=== PATIENT | female | born 1945 | race Two or more races ===

== ENCOUNTER → 2025-08-14 | Outpatient (CLI) | payer MEDICARE | END | disposition home or self-care (01) | LOC: LAB 09:57 → EDSTATUS 08-24 07:00 | PROVIDERS: ATTEND Orthopaedic Surgery Adult Reconstructive Orthopaedic Surgery | DX: M16.11 Unilateral primary osteoarthritis, right hip (principal) | CPT/HCPCS: 86850; 86900; 86901 ==

== ENCOUNTER 2025-08-24 06:09 | Inpatient (IN) | payer MEDICARE ==
[2025-08-20 11:17] LABS: Hematocrit 35.1 % (36.0-46.0); Hemoglobin 11.9 g/dL (12.2-16.2); Mean Corpuscular Hemoglobin 33.1 pg (28.0-32.0); Mean Corpuscular Volume 97.4 fL (80.0-100.0); Nucleated Red Blood Cells % 0.0 %; Urine Protein, UAD Negative (Negative)
[2025-08-20 11:28] LABS: INR 0.98 (0.9-1.15); Partial Thromboplastin Time 24.4 SEC (24.5-34.5); Prothrombin Time 10.4 sec (9.3-11.8)
[2025-08-20 11:44] LABS: Alanine Aminotransferase 16 U/L (7-40); Albumin 4.3 g/dL (3.2-4.8); Alkaline Phosphatase 79 U/L (46-116); Anion Gap 11 (5-15); BUN/Creatinine Ratio 17.0 (10.0-20.0); Blood Urea Nitrogen 15 mg/dL (9-23); Calcium 9.4 mg/dL (8.7-10.4); Carbon Dioxide 27 mmol/L (20-31); Potassium 4.7 mmol/L (3.5-5.1); Total Protein 7.1 g/dL (5.7-8.2)
[2025-08-20 11:45] LABS: Bilirubin, Total 0.6 mg/dL (0.2-1.0)
[2025-08-20 11:49] LABS: Chloride 109 mmol/L (98-107); Sodium 147 mmol/L (136-145)
[2025-08-20 12:09] LABS: Glucose 102 mg/dL (74-106)
[~2025-08-24] VITALS: Ht 162.6 cm; Wt 60.0 kg
[2025-08-24] VITALS (15 sets, daily range): BP systolic 111–166; BP diastolic 29–78; PULSE 54–76; RESP 12–18; TEMP 97.4–97.8; O2SAT 93–100
[~2025-08-24 06:09] MED LIST: ASCO500T11 PO; ATOR10TA52 PO; CALC-337 OR; CARV3.1240 PO; CYAN1TAB14 PO; DULO20CA PO; IBU600T PO; LEVO-849 PO; MECL12.586 PO; MULT-1200 PO; MULT-1228 PO; PREG100C PO; TURM500C3 OR
[2025-08-24] MEDS: PREGABALIN CAPSULE 75 MG CAP PO ONE (07:00)
[2025-08-24] MEDS: ACETAMINOPHEN IV 1000 MG/100ML (10MG/ML) IV ONE (07:00)
[2025-08-24] MEDS: CELECOXIB 100 MG CAP PO ONE (07:00)
[2025-08-24] MEDS: TRANEXAMIC ACID 20 ML ONE (07:20)
[2025-08-24] MEDS: ACETAMINOPHEN IV 100 ML IV ONE (07:20)
[2025-08-24] MEDS: ceFAZolin 2 GM/D5W50ml 50 ML IV ONE (07:30)
[2025-08-24] MEDS: CEFEPIME 1GM/50ML 50 ML IV ONE (07:50)
[2025-08-24] MEDS ORDERED: NITROGLYCERIN 0.4 MG SL TAB SL PRN (09:00)
[2025-08-24] MEDS: BUPIVACAINE 0.25% INJ 50ML VIAL ONE (09:00)
[2025-08-24] MEDS: KETOROLAC TROMETH 30 MG/ML 1ML VIAL ONE (09:00)
[2025-08-24] MEDS ORDERED: ONDANSETRON HCL 4 MG/2 ML VIAL IV PRN ×2 (09:00→10:00)
[2025-08-24] MEDS: VANCOMYCIN HCL 1000 MG VL ONE (09:00)
[2025-08-24] MEDS ORDERED: IBUPROFEN 600 MG TAB PO PRN (09:00)
[2025-08-24] MEDS ORDERED: HYDROmorphone HCL 2 MG/ML VL/or syr IV PRN ×2 (09:00→10:00)
[2025-08-24] MEDS ORDERED: MECLIZINE HCL 25 MG TAB PO SCH (09:30)
[2025-08-24] MEDS ORDERED: MORPHINE SULFATE 4 MG/ML SYR/VIAL IV PRN (09:30)
[2025-08-24] MEDS: CARVEDILOL 3.125 MG TAB PO SCH (10:00)
[2025-08-24] MEDS: PREGABALIN 25 MG CAP PO SCH (10:00)
[2025-08-24] MEDS ORDERED: NALOXONE HCL 0.4 MG/ML VIAL IV PRN (10:00)
[2025-08-24] MEDS ORDERED: diphenhydrAMINE HCL 50 MG/1 ML VL IV PRN (10:00)
[2025-08-24] MEDS: LEVOTHYROXINE SODIUM 100 MCG TAB PO SCH (10:00)
[2025-08-24] MEDS ORDERED: ACETAMINOPHEN IV 1000 MG/100ML (10MG/ML) IV ONE (10:00)
[2025-08-24] MEDS: Duloxetine Hcl (Cymbalta) 20MG CAPSULE PO SCH (10:00)
[2025-08-24] MEDS: CALCIUM CITRATE VITAMIN D PO SCH (10:00)
--- NOTE | 2025-08-24 10:20 | DVH ---
EXAM: XY PELVIS AP CLINICAL INDICATION: sp Right PILAR TECHNIQUE: XY PELVIS AP Comparison: XR PELVIS 1-2 VIEW on DOS: 07/16/25, CR HIP BILATERAL W/ PELVIS - 3 VW on DOS: 12/26/23 FINDINGS/IMPRESSION: Expected postsurgical changes status post right total hip arthroplasty. Right total hip arthroplasty.
[2025-08-24] MEDS: LACTATED RINGER'S 1,000 ML IV SCH (11:02)
[2025-08-24] MEDS: DOCUSATE SOD 100 MG CAP PO SCH (11:39)
[2025-08-24] MEDS: ASCORBIC ACID 500 MG TAB PO SCH (11:40)
[2025-08-24] MEDS: MULTIPLE VITAMINS W/ MINERALS TAB PO SCH (11:41)
[2025-08-24] MEDS: SODIUM CHLOR 0.9% PF (SALINE LOCK) 10ML VIAL/SYR IV SCH (14:00)
--- NOTE | 2025-08-24 18:17 | DVHOP2 ---
Operative Report - 2 Report Details Date: 08/24/25 Preop Diagnosis: Right hip avascular necrosis Postop Diagnosis: as above Surgeon: Enio Baron MD Tire Sorter: Maurisio VALLE Anesthesiologist: Elvin MARTINEZ Anesthesia: Regional Implant: Ugarte and nephew cemented 0 std offset r3 size 48 cup 28+0 dual mobility Consent: The patient was informed of the risks and benefits of the procedure. These include but are not limited to complications of anesthesia, postoperative infection, incomplete relief of symptoms, recurrence of symptoms, damage to b lood vessels, nerves and tendons, deep venous thrombosis, pulmonary embolism and possible need for repeat surgery in the future. Estimated Blood Loss: 300 cc Name of Procedure Performed 1. Right total hip arthroplasty with computer navigation Procedure Details Procedure Details: INDICATION: This patient has failed non-operative treatments for hip arthritis and is now indicated for a total hip replacement. Preoperatively in the waiting area as well as in the office, I had a long discussion with the patient regarding the plan, the expected outcome, the risks, benefits, and alternatives of surgery. The risks include, but are not limited to, infection (which may require future surgery and removal of implants) , bleeding (which may require a transfusion), damage to nerves, arteries, veins, tendons, muscles and other adjacent structures. Also discussed the possibilities of dislocation, leg-length discrepancy, intraoperative fractures, implant loosening, heterotopic bone formation, and revision for variety of reasons, and medical complications etc. This was discussed at length and consent has been obtained. DESCRIPTION OF PROCEDURE: In the preoperative holding area, the consent was reviewed and the appropriate extremity was verified by the patient and marked with my initials. The patient was then transferred to the operating theatre. Appropriate anesthetia was induced. All bony prominences were well padded. A time out was performed verifying the side and site of surgery according to standard protocol. Preoperative antibiotics were given. Tranexamic acid {WAS/WAS NOT:[id number]} given. The patient was then placed in the lateral decubitus position and fixed with rigid pelvic fixation. All bony prominences were well padded and an axillary roll was placed. The affected hip area was then prepped and draped in the usual sterile fashion. Using an 11-blade, three stab incisions were made over the iliac crest. Two threaded guide pins were inserted into the crest confirming to be in bone. The pelvic array was attached to the pins and tightened. We made a standard posterolateral incision sharply through the skin and carried our dissection down through subcutaneous tissue to the underlying fascia achieving hemostasis where necessary. We incised the fascia in line with our incision. We identified and protected the sciatic nerve. We took down the external rotators and hip capsule from their insertion into the greater trochanter, tagged them and retracted them posteriorly for further protection of the sciatic nerve. A check point was placed into the greater trochanter and the hip center and leg length length were registered. We then dislocated the femoral head and performed an osteotomy of the femoral neck in accordance with our pre-operative plan. The labrum was excised with a long-handle knife, and we exposed the acetabular rim and cotyloid fossa. We then reamed up to our final size in accordance with the preoperative plan. We copiously irrigated and then impacted the final cup into position. We confirmed the position with the robotic navigation guidance. We irrigated the cup and impacted the liner, checking to make sure it was well seated. Attention was then turned to the femur. We used a box osteotome followed by a canal finder to gain entry to the canal. Intramedullary contents were suctioned and care was taken to ensure they did not touch the tissues. We sequentially reamed until good cortical contact, then broached up to out final size. Patent noted to have a hairline fracture at her greater troch so we placed two cables around femur. We trialed with the appropriate femoral neck and head and reduced the hip. The hip was taken through a full range of motion. The hip soft tissues were examined in extension and external rotation, the anterior capsule and IT band were palpated, and combined anteversion was determined to be 40 degrees. The hip was stable at maximum flexion, at 90 degrees of flexion and 45 degrees of internal rotation and the position of sleep. Leg lengths were restored as shown using the computer navigation, and the trial LTC matched preoperative and intraoperative templating. The hip was then dislocated and trial components removed. We copiously irrigated the wound and cementedthe final femoral stem into position. The femoral head was impacted onto a clean and dry trunion and confirmed to be seated. The hip was reduced ensuring to tissues in the acetabular cup. We again brought it through a full functional range of motion and there was no evidence for dislocation, instability, or impingement. The checkpoint was removed. A dilute betadine solution (17.5mL in 500mL saline) was used to wash the joint and left to sit for 3 minutes. This was then irrigated out with copious amounts of pulse lavage. We sprinkled 1g vancomycin powder below the fascia and 1g above the fascia. We copiously irrigated the wound and soft tissues. The short external rotators and capsule were repaired to the greater trochanter through drill holes, and the quadratus was repaired. We palpated the sciatic nerve in continuity without tension. The fascia was closed with vicryl and a barbed suture. We closed over the fascia with vicryl suture and re-approximated the skin with lorena. A sterile dressing was placed. We returned the patient to the supine position. We verified all lower extremity compartments were soft andd compressible and that we had intact distal pulses and checked our leg length confucianist. We took an AP Pelvis in the operating room, which we reviewed prior to transfer. The patient was then transferred to the recovery room in stable condition. Condition Good Disposition Still a Patient ENIO BARON MD Aug 24, 2025 18:17
[2025-08-24] MEDS: ATORVASTATIN 20 MG TAB PO SCH (22:10)
[2025-08-25] VITALS (27 sets, daily range): BP systolic 92–116; BP diastolic 41–77; PULSE 70–90; RESP 15–18; TEMP 97.8–98.9; O2SAT 90–99
[2025-08-25 07:02] LABS: Hematocrit 27.6 % (36.0-46.0); Hemoglobin 9.5 g/dL (12.2-16.2)
[2025-08-25 07:18] LABS: Albumin 3.3 g/dL (3.2-4.8); Alkaline Phosphatase 78 U/L (46-116); Anion Gap 9 (5-15); BUN/Creatinine Ratio 22.1 (10.0-20.0); Blood Urea Nitrogen 19 mg/dL (9-23); Carbon Dioxide 26 mmol/L (20-31); Potassium 4.3 mmol/L (3.5-5.1); Sodium 142 mmol/L (136-145)
[2025-08-25 07:19] LABS: Bilirubin, Total 0.5 mg/dL (0.2-1.0)
[2025-08-25 07:23] LABS: Alanine Aminotransferase 137 U/L (7-40); Calcium 8.2 mg/dL (8.7-10.4); Chloride 107 mmol/L (98-107); Glucose 147 mg/dL (74-106)
[2025-08-25 07:24] LABS: Total Protein 5.4 g/dL (5.7-8.2)
--- NOTE | 2025-08-25 07:50 | DVHDS2 ---
Discharge Summary Date of Admission Aug 24, 2025 at 08:57 Date of Discharge: Aug 25, 2025 Wounds: If the wound is draining please change the gauze pad on the wound until it stops. If drainage persists past 10 days please notify our office. If there is a sticky gel dressing over your wound, you may leave this in place for as long as it is clean and dry. If it becomes loose or causes skin irritation, it is OK to remove it and place clean gauze over your wound. 1. You might notice some bruising around the surgical site, this is normal. 2. Check your temperature on a daily basis. Please note that a low-grade temp below 101 is not uncommon after surgery especially during the first 3 days. Notify the office if your temperature spikes above 101.5 after the 3rd post- operative date. 3. Many patients experience significant swelling in the thigh, this may extend below the knee and sometimes to the ankle. Swelling increases during the first week and subsides during the following week. 4. Provided you have been on a blood thinner since surgery and have been up and about at least three times per day, the risk of a blood clot is low and this swelling is an expected part of recovery. It will largely or completely resolve by your first post-operative visit. 5. [place], if present, will be removed at 2 weeks during initial post-op visit. Labs/Diagnostic Data: Laboratory Results Test 08/25/25 05:55 08/20/25 10:20 Hemoglobin 9.5 g/dL (12.2-16.2) Hematocrit 27.6 % (36.0-46.0) Sodium Level 142 mmol/L (136-145) Potassium Level 4.3 mmol/L (3.5-5.1) Chloride Level 107 mmol/L (98-107) Carbon Dioxide Level 26 mmol/L (20-31) Anion Gap 9 (5-15) Blood Urea Nitrogen 19 mg/dL (9-23) Creatinine 0.86 mg/dL (0.550-1.02) Glomerular Filtration Rate Calc 68 mL/min (>90) BUN/Creatinine Ratio 22.1 (10.0-20.0) Serum Glucose 147 mg/dL (74-106) Calcium Level 8.2 mg/dL (8.7-10.4) Total Bilirubin 0.5 mg/dL (0.2-1.0) Aspartate Amino Transferase (AST) 175 U/L (13-40) Alanine Aminotransferase (ALT) 137 U/L (7-40) Alkaline Phosphatase 78 U/L (46-116) Total Protein 5.4 g/dL (5.7-8.2) Albumin 3.3 g/dL (3.2-4.8) White Blood Count 4.3 10^3/uL (4.4-10.8) Red Blood Count 3.60 10^6/uL (4.0-5.20) Mean Corpuscular Volume 97.4 fL (80.0-100.0) Mean Corpuscular Hemoglobin 33.1 pg (28.0-32.0) Mean Corpuscular Hemoglobin Concent 34.0 g/dL (32.0-36.0) Red Cell Distribution Width 13.4 % (11.8-14.3) Platelet Count 267 10^3/uL (140-450) Mean Platelet Volume 7.5 fL (6.9-10.8) Neutrophils (%) (Auto) 50.6 % (37.0-80.0) Lymphocytes (%) (Auto) 30.1 % (10.0-50.0) Monocytes (%) (Auto) 16.4 % (0.0-12.0) Eosinophils (%) (Auto) 2.0 % (0.0-7.0) Basophils (%) (Auto) 0.9 % (0.0-2.0) Neutrophils # (Auto) 2.2 10 ^3/uL (1.6-8.6) Lymphocytes # (Auto) 1.3 10 ^3/uL (0.4-5.4) Monocytes # (Auto) 0.7 10 ^3/uL (0-1.3) Eosinophils # (Auto) 0.1 10 ^3/uL (0-0.8) Basophils # (Auto) 0 10 ^3/uL (0-0.2) Nucleated Red Blood Cells 0.0 % Prothrombin Time 10.4 sec (9.3-11.8) Prothrombin Time INR 0.98 (0.9-1.15) Activated Partial Thromboplast Time 24.4 SEC (24.5-34.5) Urine Color Colorless (Yellow) Urine Clarity Clear (Clear) Urine pH 6.5 (5.0-9.0) Urine Specific [place] 1.005 (1.001-1.035) Urine Protein Negative (Negative) Urine Ketones Negative (Negative) Urine Blood Negative /uL (Negative) Urine Nitrite Negative (Negative) Urine Bilirubin Negative (Negative) Urine Urobilinogen Normal mg/dL (Negative) Urine Leukocyte Esterase Negative /uL (Negative) Urine RBC None seen /hpf (0 - 4) Urine Microscopic WBC 2 /HPF (0-5) Urine Squamous Epithelial Cells Few /hpf (<5) Urine Bacteria None seen /hpf (None Seen) Urine Glucose Normal mg/dL (Normal) Other Laboratory Tests 08/25/25 05:55 08/20/25 10:20 Brief Hx & Hospital Course: s/p right PILAR Condition at Discharge: Good Final Diagnosis/Problems List as above Discharge Disposition: Home with Health Services Discharge Instruct/Medications Diet: Regular Diet comment: may advance diet as tolerated, drink plenty of fluids. avoid alcohol while taking narcotics Activity: See Comment Activity comment: 1.You can bear as much weight as you tolerate on your hip unless specifically instructed otherwise. You may use the walking aid which you were discharged with and switch to a cane whenever you feel comfortable doing so. You should use an assistive device until you can walk comfortably without it. Keep in mind that every patient moves at their own speed of recovery so take your time. 2.A physical therapist will visit you at home. 3. Although guarantees against a dislocation do not exist, the hip was noted to be sufficiently stable in surgery. Below are motions that you should dischargenot do for 4-6 weeks, depending on the surgical approach used. If there are questions, please call the office. a.Bend forward past 90 degrees b.Sit on a regular low chair, couch, car seat etc... c.Cross your legs d.Use a regular low toilet seat. e.Sleep on your stomach or on either side. 3.High impact activity such as jumping, aerobics, tennis, and skiing are not permitted during the first 3 months after surgery. These activities can contribute to accelerated wear and should be done with caution after this time. Discuss this with your surgeon if you have questions. 4.Although a bath or whirlpool is NOT permitted during the first 2-3 weeks, you may shower as soon as you get home from the hospital provided you are able to keep your bandage clean and dry and there is no wound drainage. If you are unable to place a secured covering over your bandage bed bath/sponge bath may likely be the more appropriate option. 5.Swimming is not permitted until the wound is healed, which typically occurs approximately 3-4 weeks after surgery. Follow Up/Referral: 1.Driving is not permitted within the first 2 weeks. 2.Your first postoperative visit will take place 2weeks after discharge. Please call the office to arrange this appointment. 3.Antibiotic preventative treatment is required before dental or other invasive procedures. Please ask your surgeon about this at your first postoperative visit. Your hip replacement contains metal which may activate metal detectors. You may wish to carry a letter from your surgeon to communicate this to security personnel. If you experience chest pain, shortness of breath or severe painful calf swelling, go to the nearest emergency room to be evaluated. Please call our office once your situation is stabilized. Medications: 1.You will be discharged with pain medication, Aspirin as a blood thinner and sometimes an anti-inflammatory medication such as Celebrex or Mobic might be prescribed. Please follow the instructions regarding these medicines as provided by your nurse at the hospital. 2.Narcotic pain medication has side effects, including constipation. Please ensure you continue to take stool softeners (Colace, Senna) while taking your pain medication to help protect against constipation. Getting up and moving around at least a few times per day helps with this also. 3.Lovenox 40 Sq x 12 days followed by one regular strength 325 mg coated aspirin daily for 4 weeks after surgery. Then, take one baby aspirin, 81 mg daily for 6 weeks more. A major, yet preventable, complication of Orthopaedic Surgery is a blood clot (DVT). It is important not to miss any doses of this important medication. 4.You should restart all of your prescription medications once discharged unless specifically instructed otherwise. 5.Herbal supplements may be restarted 2 weeks after surgery. Scheduled Ascorbic Acid (Vitamin C Tablet), 1 TAB PO DAILY, (Reported) Atorvastatin Calcium (Atorvastatin Calcium), 1 TAB PO DAILY, (Reported) Calcium Citrate-Vitamin D (Citracal + D3 Maximum), 1 OR DAILY, (Reported) Carvedilol (Carvedilol), 1 TAB PO BID, (Reported) Curcuma Longa (Turmeric) Extra (Turmeric), 500 MG OR DAILY, (Reported) Duloxetine Hcl (Cymbalta), 1 CAP PO BID, (Reported) Levothyroxine Sodium (Synthroid Tablet), 1 TAB PO DAILY, (Reported) Meclizine Hcl (Meclizine Hcl), 1 TAB PO PRN, (Reported) Pregabalin (Lyrica), 1 CAP PO BID, (Reported) Scheduled PRN Ibuprofen Micronized (Motrin Tablet), 600 MG PO TID PRN for prn, (Reported) Miscellaneous Medications Cyanocobalamin (B12), 1,000 MCG PO, (Reported) Multiple Vitamins W/ Minerals (Centrum Minis Adults 50+), 1 TAB PO, (Reported) Multiple Vitamins W/ Minerals (Hair Skin & Nails), 1 TAB PO, (Reported) Discharge Statement: "Patient was advised to return to the ER or call 911 if any headaches, dizziness, shortness of breath, chest pain, abdominal pain, bleeding, fevers, or worsening of medical condition. Patient was counseled about treatment plan, medications, possible side effects, patientverbalized understanding. All questions were answered to the best of my ability. This discharge took greater then 30 minutes in planning, reviewing documentation, counseling the patient, and discussing with other team members." ASSESSMENT ASSESSMENT Assessment as above ROBLES DUMONT NP Aug 25, 2025 07:50
--- NOTE | 2025-08-25 11:54 | DVHINCON2 ---
Date Seen: Aug 25, [address] BARON Allergies: Coded Allergies: Penicillins (Unverified Allergy, Unknown, N/V/Diarrhea , 08/20/25) Home Meds Reported Medications Ibuprofen Micronized (MOTRIN TABLET) 600 Mg Tb, 600 MG PO TID PRN for prn, #40 TAB *Black box warning-NSAIDS can increase risk of PA & hypertension, GI irritation, ulceration, bleed, perferation. Do not use post cardiac surgery. Use short duration/lowest effective dose. 08/20/25 Multiple Vitamins W/ Minerals (Hair Skin & Nails) 1 Tab Tab, 1 TAB PO, TAB 08/20/25 Multiple Vitamins W/ Minerals (Centrum Minis Adults 50+) 1 Tab Tab, 1 TAB PO, TAB 08/20/25 Calcium Citrate-Vitamin D (CITRACAL + D3 MAXIMUM) Maximum Tab, 1 OR DAILY, TAB 08/20/25 Ascorbic Acid (VITAMIN C TABLET) 500 Mg Tb, 1 TAB PO DAILY, #30 TAB 08/20/25 Cyanocobalamin (B12) 1,000 Mcg Tab, 1000 MCG PO, TAB 08/20/25 Curcuma Longa (Turmeric) Extra (TURMERIC) 500 Mg Cap, 500 MG OR DAILY, CAP 08/20/25 Meclizine Hcl (Meclizine Hcl) 12.5 Mg Tab, 1 TAB PO PRN, #30 TAB 08/20/25 Carvedilol (Carvedilol) 3.125 Mg Tab, 1 TAB PO BID, #180 TAB 3 Refills 08/20/25 Duloxetine Hcl (Cymbalta) 20 Mg Cap, 1 CAP PO BID, #30 CAP 08/20/25 Atorvastatin Calcium (ATORVASTATIN CALCIUM) 10 Mg Tab, 1 TAB PO DAILY, #90 TAB 3 Refills 08/20/25 Levothyroxine Sodium (SYNTHROID TABLET) 100 Mcg Tb, 1 TAB PO DAILY, #90 TAB 3 Refills 08/20/25 Pregabalin (Lyrica) 100 Mg Cap, 1 CAP PO BID, #60 CAP 08/20/25 Current Medications Current Medications Medications (Trade) Dose Ordered Sig/Sukhjinder Route PRN Reason Start Time Stop Time Status Last Admin Atorvastatin Calcium (Lipitor) 10 mg HS PO 08/24/25 22:00 08/24/25 22:10 Sodium Chloride (Saline Lock Ns) 10 ml Q8HR IV 10/6/25 14:00 08/25/25 06:20 Vital Signs Vital Signs Date Time Temp Pulse Resp B/P (MAP) Pulse Ox O2 Delivery O2 Flow Rate FiO2 08/25/25 10:42 79 16 97 08/25/25 10:00 104/52 08/25/25 09:00 98.3 98.3 08/25/25 08:20 Nasal Cannula* 2 28 Labs/Diagnostic Data Labs Test 08/25/25 05:55 08/20/25 10:20 Range/Units Hemoglobin 9.5 #L 12.2-16.2 g/dL Hematocrit 27.6 #L 36.0-46.0 % Sodium Level 142 # 136-145 mmol/L Potassium Level 4.3 3.5-5.1 mmol/L Chloride Level 107 98-107 mmol/L Carbon Dioxide Level 26 20-31 mmol/L Anion Gap 9 5-15 Blood Urea Nitrogen 19 9-23 mg/dL Creatinine 0.86 0.550-1.02 mg/dL Glomerular Filtration Rate Calc 68 >90 mL/min BUN/Creatinine Ratio 22.1 H 10.0-20.0 Serum Glucose 147 H 74-106 mg/dL Calcium Level 8.2 L 8.7-10.4 mg/dL Total Bilirubin 0.5 0.2-1.0 mg/dL Aspartate Amino Transferase (AST) 175 H 13-40 U/L Alanine Aminotransferase (ALT) 137 H 7-40 U/L Alkaline Phosphatase 78 46-116 U/L Total Protein 5.4 L 5.7-8.2 g/dL Albumin 3.3 3.2-4.8 g/dL White Blood Count 4.3 L 4.4-10.8 10^3/uL Red Blood Count 3.60 L 4.0-5.20 10^6/uL Mean Corpuscular Volume 97.4 80.0-100.0 fL Mean Corpuscular Hemoglobin 33.1 H 28.0-32.0 pg Mean Corpuscular Hemoglobin Concent 34.0 32.0-36.0 g/dL Red Cell Distribution Width 13.4 11.8-14.3 % Platelet Count 267 140-450 10^3/uL Mean Platelet Volume 7.5 6.9-10.8 fL Neutrophils (%) (Auto) 50.6 37.0-80.0 % Lymphocytes (%) (Auto) 30.1 10.0-50.0 % Monocytes (%) (Auto) 16.4 H 0.0-12.0 % Eosinophils (%) (Auto) 2.0 0.0-7.0 % Basophils (%) (Auto) 0.9 0.0-2.0 % Neutrophils # (Auto) 2.2 1.6-8.6 10 ^3/uL Lymphocytes # (Auto) 1.3 0.4-5.4 10 ^3/uL Monocytes # (Auto) 0.7 0-1.3 10 ^3/uL Eosinophils # (Auto) 0.1 0-0.8 10 ^3/uL Basophils # (Auto) 0 0-0.2 10 ^3/uL Nucleated Red Blood Cells 0.0 % Prothrombin Time 10.4 9.3-11.8 sec Prothrombin Time INR 0.98 0.9-1.15 Activated Partial Thromboplast Time 24.4 L 24.5-34.5 SEC Urine Color Colorless Yellow Urine Clarity Clear Clear Urine pH 6.5 5.0-9.0 Urine Specific [place] 1.005 1.001-1.035 Urine Protein Negative Negative Urine Ketones Negative Negative Urine Blood Negative Negative /uL Urine Nitrite Negative Negative Urine Bilirubin Negative Negative Urine Urobilinogen Normal Negative mg/dL Urine Leukocyte Esterase Negative Negative /uL Urine RBC None seen 0 - 4 /hpf Urine Microscopic WBC 2 0-5 /HPF Urine Squamous Epithelial Cells Few <5 /hpf Urine Bacteria None seen None Seen /hpf Urine Glucose Normal Normal mg/dL Assessment SEE DICTATED NOTE Plan discussed with: Patient Date of Service: Aug 25, 2025 Billing Provider: ZUHAIR FERRARI MD Common Visit Codes: [id number] INP/OBS CARE (HIGH) Secondary Visit Codes: [id number] CARE PLAN 30 MINUTES ZUHAIR FERRARI MD Aug 25, 2025 11:54
[2025-08-25] MEDS ORDERED: HYDROmorphone HCL 2 MG/ML VL/or syr IV PRN (12:00)
--- NOTE | 2025-08-25 12:16 | DVHINCON2 ---
INTERNAL MEDICINE CONSULT HISTORY OF PRESENT ILLNESS: The patient is an 79-year-old lady who is admitted after she underwent surgery on the right hip for right hip avascular necrosis. The patient at this time denies any chest pain, no shortness of breath, no cough, no nausea or vomiting. REVIEW OF SYSTEMS: Review of rest of the systems, otherwise, is currently negative. PAST MEDICAL HISTORY: Significant for hypertension, hyperlipidemia, hypothyroidism and depression. MEDICATIONS: She takes Lipitor, Coreg, Cymbalta, levothyroxine and Lyrica. ALLERGIES: PENICILLIN. SOCIAL HISTORY: Denies smoking. Lives at home with her . Drinks about a glass of wine at night. FAMILY HISTORY: Negative. PHYSICAL EXAMINATION: GENERAL: The patient is awake and alert. VITAL SIGNS: Temperature of 98.3, pulse 79 per minute, blood pressure 104/52. SHEENT: Unremarkable. NECK: There is no JVD. No pedal edema. LUNGS: Equal bilaterally. No added sounds. CARDIOVASCULAR: S1 and S2 is regular without murmurs. ABDOMEN: Abdomen is soft. There is no organomegaly. NEUROLOGIC: Neurologic exam is nonfocal. MUSCULOSKELETAL: There is a dressing at the site of right hip surgery with a mild erythema around the dressing. ASSESSMENT AND PLAN: * Acute respiratory failure. The patient currently is on oxygen at 2 liters per minute. A chest x-ray will be obtained. * Transaminitis. * Hypertension, for which blood pressure medication will be held. * Hypothyroidism. A TSH will be checked. * Neuropathy. * Hyperlipidemia. * Status post right hip surgery for avascular necrosis, for which she will be placed on pain medication and receive physical therapy. Advanced care planning. The patient is a full code. Time spent was 17 minutes. MD BLESSING May/KIM TID: [id number] RECEIPT: [id number]
--- NOTE | 2025-08-25 13:02 | DVH ---
CHEST RADIOGRAPH Indication: resp failure Technique: Single frontal view of the chest was obtained COMPARISON: XR CHEST 2 VIEW on DOS: 07/16/25, CR CHEST 2 VIEW on DOS: 11/03/24 FINDINGS: Lines and Tubes: None Lungs: Congestion Pleura: No effusion. No pneumothorax. Cardiomediastinal contours: Unremarkable Bones: Unremarkable IMPRESSION: Increased interstital prominence. This may represent pulmonary vascular congestion and/or viral pneum onia. Clinical correlation advised.
[2025-08-25] MEDS: HYDROcodone-ACET 5/325MG TAB PO PRN (14:52)
[2025-08-25] MEDS: FUROSEMIDE 20 MG TAB PO ONE (16:32)
[2025-08-26 00:49] VITALS: BP 109/63; PULSE 83; RESP 18; TEMP 98.1; O2SAT 97
[2025-08-26 05:00] VITALS: BP 106/95; PULSE 81; RESP 18; TEMP 98.4; O2SAT 95
[2025-08-26 06:25] LABS: Hematocrit 28.1 % (36.0-46.0); Hemoglobin 9.7 g/dL (12.2-16.2); Mean Corpuscular Hemoglobin 33.2 pg (28.0-32.0); Mean Corpuscular Volume 96.2 fL (80.0-100.0); Nucleated Red Blood Cells % 0.0 %
[2025-08-26 06:44] LABS: Albumin 3.5 g/dL (3.2-4.8); Alkaline Phosphatase 80 U/L (46-116); Anion Gap 12 (5-15); BUN/Creatinine Ratio 18.9 (10.0-20.0); Blood Urea Nitrogen 14 mg/dL (9-23); Carbon Dioxide 28 mmol/L (20-31); Chloride 106 mmol/L (98-107); Potassium 3.9 mmol/L (3.5-5.1)
[2025-08-26 06:45] LABS: Bilirubin, Total 0.7 mg/dL (0.2-1.0)
[2025-08-26 06:52] LABS: Alanine Aminotransferase 90 U/L (7-40); Calcium 8.5 mg/dL (8.7-10.4); Glucose 108 mg/dL (74-106); Sodium 146 mmol/L (136-145); Total Protein 5.7 g/dL (5.7-8.2)
[2025-08-26 08:00] VITALS: PULSE 78; PULSE 86; RESP 17; O2SAT 97
[2025-08-26 09:00] VITALS: BP 124/74; PULSE 86; RESP 17; TEMP 98.7; O2SAT 97
--- NOTE | 2025-08-26 11:55 | DVHPN2 ---
Progress Note Date Seen: Aug 26, 2025 Medical Necessity Reason Pt with a Central, PICC or Fol: No Subjective Patient reports: No new complaints Review of Systems: HEENT:Normal, CVS:Normal, RESPIRATORY:Normal, GI:Normal, :Normal, MSK:Normal, NEURO:Normal Objective vital signs Vital Sign Date Time Temp Pulse Resp B/P (MAP) Pulse Ox O2 Delivery O2 Flow Rate FiO2 08/26/25 09:00 98.7 86 17 124/74 (91) 97 98.7 08/25/25 20:00 Nasal Cannula* 2 28 Total Intake and Output 08/25/25 08/25/25 08/26/25 15:00 23:00 07:00 Intake Total 500 ml 200 ml Balance 500 ml 200 ml medications Current Medications Medications Dose Ordered Sig/Sukhjinder Route Start Time Stop Time Status Last Admin Dose Admin Ascorbic Acid 500 mg DAILY PO 08/24/25 10:00 08/26/25 09:01 500 MG Ibuprofen 600 mg TID PRN PO 08/24/25 09:00 Hold Levothyroxine Sodium 100 mcg QAM PO 08/24/25 10:00 08/26/25 06:21 100 MCG Multivitamins/ Minerals 1 tab DAILY PO 08/24/25 10:00 08/25/25 10:01 1 TAB Atorvastatin Calcium 10 mg HS PO 08/24/25 22:00 08/25/25 21:43 10 MG Patient Own Medication 1 tab DAILY PO 08/24/25 10:00 Patient Own Medication 1 cap BID PO 08/24/25 10:00 Meclizine HCl 12.5 mg PRN PO 08/24/25 09:30 Hold Pregabalin 100 mg BID PO 08/24/25 10:00 08/26/25 09:01 100 MG Sodium Chloride 10 ml Q8HR IV 08/24/25 14:00 08/26/25 06:21 10 ML Acetaminophen/ Hydrocodone Bitart 1 tab Q4HP PRN PO 08/24/25 09:00 08/25/25 14:52 1 TAB Docusate Sodium 100 mg Q12HR PO 08/24/25 10:00 08/26/25 09:01 100 MG Nitroglycerin 0.4 mg Q5MINP PRN SL 08/24/25 09:00 Morphine Sulfate 2 mg Q30M PRN IV 08/24/25 09:30 Diphenhydramine HCl 25 mg Q4HP PRN IV 08/24/25 10:00 Ondansetron HCl 4 mg Q4HP PRN IV 08/24/25 10:00 Hydromorphone HCl 1 mg Q3HP PRN IV 08/25/25 12:00 Examination: GENERAL:Normal, HEENT:Normal, NECK:Normal, LUNGS:Normal, CVS:Normal, ABDOMEN:Normal, MSK:Normal, MSK:Abnormal (right hip dressing), SKIN:Normal, NEURO:Normal, :Normal laboratory and microbiology Laboratory Tests 08/26/25 05:35 Test 08/26/25 05:35 Range/Units Serum Glucose 108 H 74-106 mg/dL Problem List/Assessment/Plan Problem List/Assessment/Plan * Acute respiratory failure. The patient currently is on oxygen at 2 liters per minute. - improved-on room air * Transaminitis- improving * Hypertension, for which blood pressure medication will be held. * Hypothyroidism. A TSH will be checked. * Neuropathy. * Hyperlipidemia. * Status post right hip surgery for avascular necrosis, for which she will be placed on pain medication and receive physical therapy. advance care planning- full code- time spent 19 mins Plan discussed with: Patient My Orders My Orders Orders - ZUHAIR FERRARI MD Procedure Category Date Status Time * Licensed Plumber CONS 08/26/25 Transmitted Consult Date of Service: Aug 26, 2025 Billing Provider: ZUHAIR FERRARI MD Common Visit Codes: [id number] INP/OBS CARE(HIGH) Secondary Visit Codes: [id number] CARE PLAN 30 MINUTES ZUHAIR FERRARI MD Aug 26, 2025 11:55
[2025-08-26 13:00] VITALS: BP 118/70; PULSE 88; RESP 17; TEMP 98.9; O2SAT 91
== END 2025-08-26 16:32 | disposition home health service (06) | DRG 469 ==
LOC: SUR 06:09 → OVERFLOW 08:57 → TELE-WESTW 13:13
PROVIDERS: ADMIT Internal Medicine; ATTEND Internal Medicine
PROC: 8E0YXBZ Computer Assisted Procedure of Lower Extremity (ICD-10-PCS; 2025-08-24)
PROC: 0SR90J9 Replacement of Right Hip Joint with Synthetic Substitute, Cemented, Open Approach (ICD-10-PCS; principal; 2025-08-24 07:17)
DX: M16.11 Unilateral primary osteoarthritis, right hip (principal); J96.00 Acute respiratory failure, unspecified whether with hypoxia or hypercapnia; M87.851 Other osteonecrosis, right femur; I10 Essential (primary) hypertension; E03.9 Hypothyroidism, unspecified; E78.5 Hyperlipidemia, unspecified; F32.A Depression, unspecified; G62.9 Polyneuropathy, unspecified; R74.01 Elevation of levels of liver transaminase levels; Z88.0 Allergy status to penicillin; Z79.899 Other long term (current) drug therapy; Z79.1 Long term (current) use of non-steroidal anti-inflammatories (NSAID); E87.70 Fluid overload, unspecified
CPT/HCPCS: 36415; 71045; 72170; 80053; 81001; 84443; 85014; 85018; 85025; 85610; 85730; 86850; 86900; 86901; 97110; 97116; 97163; 97530; G0378; J0131; J1100; J1885; J2003; J2250; J2405; J2704; J3490